=== PATIENT | female | born 1965 | race Hispanic/Latino ===

== ENCOUNTER → 2018-12-16 | Outpatient (CLI) | payer MEDICARE ==
--- NOTE | 2018-12-16 14:40 | Diagnostic Imaging Report ---
TECHNIQUE: Transabdominal ultrasound imaging of the pelvis was performed, as requested. Color Doppler evaluation was utilized to supplement the evaluation. Per the technologist performing the exam, the evaluation was somewhat limited in the absence of supplemental transvaginal images. HISTORY: Pelvic pain, no reported history of surgery COMPARISON: None available DISCUSSION: UTERUS: Limited evaluation of the uterus, the uterus measures 6.4 x 3.2 x 4.9 cm. OVARIES/ADNEXA: The ovaries were not visualized and cannot be evaluated. PELVIS: No free fluid. IMPRESSION: 1. No free fluid. 2. Limited evaluation of the uterus. 3. The ovaries were not visualized and therefore could not be evaluated. 4. If warranted, a follow-up transvaginal ultrasound may be obtained for further evaluation of the uterus and ovaries. Signed by: Dr. Yair Aggarwal D.O., M.M.M. on 12/16/2018 2:36 PM
== END ==
LOC: US 10:36
PROVIDERS: ATTEND Internal Medicine
DX: R10.2 Pelvic and perineal pain (principal)
CPT/HCPCS: 76856

== ENCOUNTER → 2019-10-05 | Outpatient (CLI) | payer MEDICARE ==
[~2019-10-05] MED LIST: DIATRIZOATE MEGL/DIATRIZOA SOD 30 ML BTL PO ONE
--- NOTE | 2019-10-05 11:38 | Diagnostic Imaging Report ---
CT of the abdomen and pelvis History: Right lower quadrant abdominal pain Comparison: None available. Technique: Multidetector CT scanning of the abdomen and pelvis was performed from the level of the lung bases to the inferior pubic ramus without IV and with oral contrast DOSE REDUCTION: The examination was performed according to departmental dose-optimization program which includes automated exposure control, adjustment of the mA and/or kV according to patient size and/or use of iterative reconstruction technique. Discussion: The lung bases demonstrate dependent atelectasis. Multiple hepatic cysts are identified within the liver the largest of which is in the posterior right hepatic lobe and measures 2.9 cm in diameter. No suspicious hepatic lesions are identified. The gallbladder is present and nondistended. No radiopaque gallstones are identified. There is no intrahepatic or intrahepatic biliary dilatation. The spleen is within normal limits. The bilateral adrenal glands are unremarkable. There is no pancreatic ductal dilatation or peripancreatic inflammatory stranding. The kidneys are normal in size. No kidney stones are identified. There is no hydroureteronephrosis. The stomach, small, and large bowel are nondistended. There is no evidence of obstruction. The appendix is absent. No bowel wall thickening is appreciated. There are scattered colonic diverticula without evidence of acute diverticulitis. The abdominal aorta is of normal course and caliber. The urinary bladder is within normal limits. No acute osseous abnormalities are identified. There is marked atrophy of the right gluteal, stranding, and quadriceps muscles. No acute osseous abnormalities are identified. IMPRESSION: 1. No CT evidence of acute abdominal or pelvic pathology. 2. Status post appendectomy. 3. Colonic diverticulosis without evidence of acute diverticulitis. 4. Marked atrophy of the right gluteal, hamstring, and quadricep muscles Signed by: Kenyon Palacios MD on 10/05/2019 11:35 AM
== END ==
LOC: CT 08:54
PROVIDERS: ATTEND Internal Medicine
DX: R10.31 Right lower quadrant pain (principal)
CPT/HCPCS: 74176